=== PATIENT | female | born 1965 | race Caucasian/White ===

== ENCOUNTER 2018-05-10 23:22 | Emergency (ER) | payer OTHER ==
[~2018-05-10] VITALS: Ht 160 cm; Wt 54.4 kg
--- NOTE | ~2018-05-10 | EKG ---
[place] [address] 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 : 1965 Requested By: Jennifer Pham Order Number: [id number] MD: Jeff Guadarrama Measurements Intervals [place] Rate: 79 P: 70 NH: 99 QRS: 67 QRSD: 105 T: 70 QT: 420 QTc: 482 Interpretive Statements Sinus rhythm Short NH interval Left atrial enlargement Left ventricular hypertrophy No previous ECG available for comparison Electronically Signed On 05-11-2018 8:07:30 [employer] by Jeff Guadarrama [email or web address] <ELECTRONICALLY SIGNED> By: Jeff Guadarrama MD 05/11/18 [id number] Jeff Guadarrama MD /[email or web address]
[2018-05-11 00:45] LABS: HEMATOCRIT 38.3 % (37.0-47.0); HEMOGLOBIN 12.8 gm/dL (12.0-15.0); MCHC 33.5 g/dL (28.0-37.0); MCV 92.6 fL (80.0-100.0); RBC 4.14 mil/uL (4.20-5.00); RDW 14.7 % (10.5-14.5); WBC 5.1 thou/uL (4.0-11.0)
[2018-05-11 00:54] LABS: ANION GAP 10 mmol/L (7-16); BUN 15 mg/dL (7-18); CALCIUM 8.7 mg/dL (8.5-10.1); CHLORIDE 109 mmol/L (98-107); CO2 25 mmol/L (21-32); CREATININE 0.9 mg/dL (0.6-1.0); GLUCOSE 94 mg/dL (74-106); POTASSIUM 3.4 mmol/L (3.5-5.1); SODIUM 144 mmol/L (136-145)
[2018-05-11] MEDS ORDERED: LISINOPRIL5 MG PO (01:02)
[2018-05-11 01:03] LABS: TROPONIN-I <0.06 ng/mL (<0.06)
[2018-05-11 01:22] VITALS: BP 134/80
== END 2018-05-11 01:20 | disposition home or self-care (01) ==
LOC: ER 23:22
PROVIDERS: Emergency Medicine
DX: R07.89 Other chest pain (principal); R05 Cough; F17.210 Nicotine dependence, cigarettes, uncomplicated; I10 Essential (primary) hypertension